=== PATIENT | female | born 1990 | race Caucasian/White ===

== ENCOUNTER 2018-02-20 00:11 | Emergency (ER) | payer OTHER ==
[2018-02-20 00:40] VITALS: BP 134/77; TEMP 98.9; BMI 17.4
[2018-02-20] MEDS ORDERED: SODIUM CHLORIDE 1,000 ML IV STA (00:49)
[2018-02-20] MEDS ORDERED: CLEOCIN 600 MG in SODIUM CHLORIDE 50 ML IV STA (00:49)
[2018-02-20] MEDS ORDERED: DECADRON 4 MG/ML SDV IVP STA (00:50)
[2018-02-20] MEDS ORDERED: TORADOL IVP STA (00:50)
[2018-02-20] MEDS ORDERED: ROCEPHIN 1 GM in SODIUM CHLORIDE 50 ML IV STA (00:52)
[2018-02-20] MEDS ORDERED: CLEOCIN ONE ×2 (01:05→01:28)
[2018-02-20] MEDS ORDERED: ROCEPHIN ONE ×2 (01:05→01:11)
--- NOTE | 2018-02-20 02:07 | CT ---
EXAM: CT scan facial bones HISTORY: Left-sided dental pain COMPARISON: None. FINDINGS: Contiguous axial images obtained through the facial bones without contrast utilizing 3-mm collimation. Sagittal and coronal reconstructions were imaged and reviewed... The orbital structure s intact. Minimal mucoperiosteal thickening is seen within the left maxillary sinus Swelling and raissa ma are seen adjacent to the left side of the mandible. This extends into the neck. There is 10 mm ret ro mandibular lymph node. Small submental lymph nodes are noted bilaterally.. There is no evidence o f a periapical abscess. IMPRESSION: Left-sided edema and swelling which extends from level of the mandible into the neck and with adjacen t prominent lymph nodes. No evidence of dental abscess.
--- NOTE | 2018-02-20 02:14 | CT ---
EXAM: CT scan neck without contrast HISTORY: Left-sided swelling COMPARISON: None. FINDINGS: Contiguous axial images obtained from level posterior fossa through the thoracic inlet wit hout contrast utilizing 3-mm collimation. Sagittal and coronal reconstructions were imaged and revie wed.. Evaluation is limited without contrast Right lingual tonsil is mildly prominent.. Nasopharynx , oropharynx and hypopharynx are unremarkable. There is normal subglottic trachea. Thyroid gland is normal. There is left-sided neck swelling Major salivary glands are normal Prominent subcentimete r lymph nodes are noted on the left. The visualized lung apices are clear. IMPRESSION: Nonspecific left-sided neck swelling with likely reactive lymph nodes.
--- NOTE | 2018-02-20 02:30 | ED.PDOC ---
General ED Provider: Dr. GEMINI FORTUNE-ER Chief Complaint: Tooth Problem Stated Complaint: my tooth hurts and im swelling Time Seen by Physician: 00:20 Mode of Arrival: Walk-In Information Source: Patient Exam Limitations: No limitations Primary Care Provider: DORI SALMERON Nursing and Triage Documentation Reviewed and Agree: Yes Does patient meet sepsis criteria?: No System Inflammatory Response Syndrome: Not Applicable Sepsis Protocol: For patient's 13 years and over: Temp is 96.8 and below OR 101 and greater Pulse >90 BPM Resp >20/minute Acutely Altered Mental Status Are patient's symptoms suggestive of a new infection, such as: -Pneumonia -Skin, Soft Tissue -Endocarditis -UTI -Bone, Joint Infection -Implantable Device -Acute Abdominal Infection -Wound Infection -Meningitis -Blood Stream Catheter Infection -Unknown EENT Complaint Exam - Dental/Oral Complaint/Exam Mechanism of Injury: No known trauma Onset/Duration: 2 days Symptoms Are: Still present Timing: Constant Initial Severity: Mild Current Severity: Mild Location: left jaw Character: Reports: Dull, Aching, Throbbing Aggravating: Reports: Heat, Cold, Chewing Alleviating: Reports: None Associated Signs and Symptoms: Reports: Swelling, Discharge. Denies: Fever, Foul odor, Foul taste in mouth Tooth Findings: Present: Percussion tenderness, Gross decay, Gross caries Cervical Lymphadenopathy Present: Yes Facial Swelling Present: Yes Bleeding Present: No Septal Hematoma: No Foreign Body Present: No Dysphagia Present: No Drooling Present: No Asymmetrical Tonsillar Swelling Present: No Uvula Midline: No Rosa-tonsillar Fluctuence: No Trismus Present: No Palatal Petechiae Present: No Scarlatinaform Rash Present: No Differential Diagnoses: Dental Abcess, Dental Caries Review of Systems - Review Of Systems Constitutional: Reports: No symptoms Eyes: Reports: No symptoms Ears, Nose, Mouth, Throat: Reports: Mouth pain, Mouth swelling Respiratory: Reports: No symptoms Cardiac: Reports: No symptoms GI: Reports: No symptoms : Reports: No symptoms Musculoskeletal: Reports: No symptoms Skin: Reports: No symptoms Neurological: Reports: No symptoms Endocrine: Reports: No symptoms Hematologic/Lymphatic: Reports: No symptoms All Other Systems: Reviewed and Negative Past Medical History - Past Medical History Previously Healthy: No Endocrine: Reports: Unknown Cardiovascular: Reports: Unknown Respiratory: Reports: Unknown Hematological: Reports: Unknown Gastrointestinal: Reports: Unknown Genitourinary: Reports: Unknown Neuro/Psych: Reports: Unknown Musculoskeletal: Reports: Unknown Cancer: Reports: Unknown Last Menstrual Period: 2-3 WEEKS AGO - Surgical History General Surgical History: Reports: Unknown - Family History Family History: Reports: Unknown - Social History Smoking Status: Current every day smoker, Light tobacco smoker Hx Substance Use: No Alcohol Screening: None - Immunizations Tetanus Shot up to Date: Yes Physical Exam - Physical Exam Appearance: Well-appearing, No pain distress, Well-nourished Pain Distress: Mild Eyes: MARIO ENT: Ears normal, Nose normal, Oropharynx normal Neck: Supple Respiratory: Airway patent, Breath sounds clear, Breath sounds equal, Respirations nonlabored Cardiovascular: RRR GI/: Soft Musculoskeletal: Normal strength, ROM intact, No edema, No calf tenderness Skin: Warm, Dry, Normal color Neurological: Sensation intact, Motor intact, Reflexes intact, Cranial nerves intact, Alert, Oriented Psychiatric: Affect appropriate, Mood appropriate Interpretation - Radiology Interpretation Radiology Interpretation By: Radiologist Radiology Results: Positive Exam Interpreted: CT Scan Critical Care Note - Critical Care Note Total Time (mins): 0 Course - Course Hematology/Chemistry: 02/20/18 01:05 02/20/18 01:05 Orders, Labs, Meds: Lab Review 02/20/18 02/20/18 02/20/18 01:05 01:05 01:05 WBC 12.03 H RBC 3.95 L Hgb 11.2 L Hct 33.8 L MCV 85.6 MCH 28.4 MCHC 33.1 RDW Coeff of Mak 13.7 Plt Count 247 Immature Gran % (Auto) 0.6 Neut % (Auto) 70.4 Lymph % (Auto) 19.5 [place] % (Auto) 7.6 Eos % (Auto) 1.7 Baso % (Auto) 0.2 Immature Gran # (Auto) 0.1 Neut # (Auto) 8.5 H Lymph # (Auto) 2.4 [place] # (Auto) 0.9 Eos # (Auto) 0.2 Baso # (Auto) 0.0 Sodium 140 Potassium 2.7 L* Chloride 105 Carbon Dioxide 26 Anion Gap 11.7 BUN 9 Creatinine 0.65 Estimated GFR (MDRD) 110.00 BUN/Creatinine Ratio 13.84 Glucose 95 Calcium 9.0 Total Bilirubin 0.4 AST 12 L ALT < 6 L Alkaline Phosphatase 56 Total Protein 7.3 Albumin 3.5 Globulin 3.8 Albumin/Globulin Ratio 0.92 Serum , Qual Negative Orders Category Date Time Status IV [ED IV/MEDIPORT/POWERPORT] .ONCE EMERGENCY 02/20/18 00:48 Active CBC W/ AUTO DIFF Stat LAB 02/20/18 01:05 Completed COMPREHENSIVE METABOLIC PANEL Stat LAB 02/20/18 01:05 Completed SERUM Stat LAB 02/20/18 01:05 Completed 0.9 % Sodium Chloride [Saline Flush] MEDS 02/20/18 00:48 Ordered 1 syr IVF PRN PRN Ceftriaxone Sodium [Rocephin] MEDS 02/20/18 01:05 Discontinued 1 gm .ROUTE .STK-MED ONE Ceftriaxone Sodium [Rocephin] MEDS 02/20/18 01:11 Discontinued 1 gm .ROUTE .STK-MED ONE Ceftriaxone Sodium [Rocephin] 1 gm MEDS 02/20/18 00:52 Discontinued 0.9 % Sodium Chloride [Sodium Chloride] 50 ml IV ONCE Clindamycin Phosphate Inj [Cleocin] MEDS 02/20/18 01:05 Discontinued 300 mg .ROUTE .STK-MED ONE Clindamycin Phosphate Inj [Cleocin] MEDS 02/20/18 01:28 Discontinued 300 mg .ROUTE .STK-MED ONE Clindamycin Phosphate Inj [Cleocin] 600 mg MEDS 02/20/18 00:49 Discontinued 0.9 % Sodium Chloride [Sodium Chloride] 50 ml IV ONCE Dexamethasone 4 mg/ml Inj [Decadron 4 mg/ml Sdv] MEDS 02/20/18 00:50 Discontinued 8 mg IVP ONCE STA Ketorolac Tromethamine [Toradol] MEDS 02/20/18 00:50 Discontinued 30 mg IVP ONCE STA Sodium Chloride 0.9% [Sodium Chloride] 1,000 ml MEDS 02/20/18 00:49 Active IV 100 mls/hr CT MAXILLOFACIAL W/O CONTRAST Stat RADS 02/20/18 00:[address] SOFT TISSUE NECK W/O CONTR Stat RADS 02/20/18 00:51 Completed Medications Generic Name Dose Route Start Last Admin Trade Name Freq PRN Reason Stop Dose Admin Sodium Chloride 1,000 mls @ 100 mls/hr 02/20/18 00:49 02/20/18 01:16 Sodium Chloride IV 02/20/18 10:48 100 mls/hr .Q10H STA Administration Sodium Chloride 1 syr 02/20/18 00:48 02/20/18 01:19 Saline Flush IVF 1 syr PRN PRN Administration To flush IV Discontinued Medications Generic Name Dose Route Start Last Admin Trade Name Ricky PRN Reason Stop Dose Admin Dexamethasone Sodium Phosphate 8 mg 02/20/18 00:50 02/20/18 01:17 Decadron 4 Mg/Ml Sdv IVP 02/20/18 00:51 8 mg ONCE STA Administration Clindamycin Phosphate 600 mg/ 54 mls @ 50 mls/hr 02/20/18 00:49 02/20/18 01: 26 Sodium Chloride IV 02/20/18 01:53 50 mls/hr ONCE STA Administration Ceftriaxone Sodium 1 gm/ 50 mls @ 75 mls/hr 02/20/18 00:52 Sodium Chloride IV 02/20/18 01:31 ONCE STA Ketorolac Tromethamine 30 mg 02/20/18 00:50 02/20/18 01:21 Toradol IVP 02/20/18 00:51 30 mg ONCE STA Administration ms rasheed explained she could not stay in the hospital --with both the low potassium and the dental abscess she needs to be hospitalized but she refused--- -i counseled her she was at risk for arrythymia and worsening infection that could possibly compromise her airway but the refuses and decided to leave AMA Vital Signs: Temp Pulse Resp BP Pulse Ox 02/20/18 00:12 98.9 F 80 20 134/77 97 Departure - Departure Time of Disposition: 02:33 Disposition: AMA Discharge Problem: Hypokalemia, Dental abscess Instructions: Dental Abscess (ED) Condition: Good Pt referred to PMD for follow-up: Yes IPMP verified?: No Additional Instructions: return prn Allergies/Adverse Reactions: Allergies No Known Drug Allergies Adverse Reaction (Verified 02/20/18 00:31) Home Medications: Ambulatory Orders Clonazepam [Klonopin] 1 mg PO TID PRN 02/17/16 Hydrocodone/Acetaminophen [Hydrocodone-Acetamin 5-325 mg] 1 tab PO TID 02/20/18 Mirtazapine [Remeron] 7.5 mg PO BEDTIME 02/20/18 Propranolol HCl 60 mg PO TID 02/20/18 Disposition Discussed With: Patient, Family
[2018-02-20] MEDS ORDERED: K-DUR PO STA (02:35)
[2018-02-20] MEDS ORDERED: POTASSIUM CHL 10% ORAL SOL PO STA (02:39)
[2018-02-20] MEDS ORDERED: POTASSIUM CHL 10% ORAL SOL ONE (02:56)
== END 2018-02-20 04:18 | disposition left against medical advice (07) ==
LOC: ED 00:11
DX: K04.7 Periapical abscess without sinus (principal); E87.6 Hypokalemia; K02.7 Dental root caries; F17.210 Nicotine dependence, cigarettes, uncomplicated; Z79.899 Other long term (current) drug therapy
CPT/HCPCS: 36415; 80053; 84703; 85025; 96361; 96365; 96367; 96375; 99282; 99284

== ENCOUNTER 2018-02-20 13:01 | Emergency (ER) | payer OTHER ==
[2018-02-20 13:20] VITALS: BP 113/70; TEMP 98.8; BMI 17.5
--- NOTE | 2018-02-20 14:08 | ED.PDOC ---
General ED Provider: Dr. MELODIE VALDEZ Chief Complaint: Abnormal Labs Stated Complaint: returns for low potassium Time Seen by Physician: 13:00 (was seen last night in the ED SERUM K WAS 2.7 SHE LEFT AMA) Mode of Arrival: Walk-In Information Source: Patient Exam Limitations: No limitations Primary Care Provider: DORI SALMERON Nursing and Triage Documentation Reviewed and Agree: Yes Does patient meet sepsis criteria?: Yes If yes, has appropriate treatment been initiated?: No System Inflammatory Response Syndrome: Not Applicable Sepsis Protocol: For patient's 13 years and over: Temp is 96.8 and below OR 101 and greater Pulse >90 BPM Resp >20/minute Acutely Altered Mental Status Are patient's symptoms suggestive of a new infection, such as: -Pneumonia -Skin, Soft Tissue -Endocarditis -UTI -Bone, Joint Infection -Implantable Device -Acute Abdominal Infection -Wound Infection -Meningitis -Blood Stream Catheter Infection -Unknown Miscellaneous Complaint Exam - Complex/Multi-System Complaint/Exam Onset/Duration: 1 DAY Symptoms Are: Still present Episodes Lasting: Hours Initial Severity: Moderate Associated Signs and Symptoms: Denies: Decreased responsiveness, Confusion, Agitation, Dizziness, Weakness, Syncope, Headache, Short of air, Cough, Wheezing , Hemoptysis, Chest pain, Palpitations, Edema, Nausea, Vomiting, Diarrhea, Abdominal pain, Back pain, Dysuria, Hematemesis, Melena, Decreased oral intake, Fever, Diaphoresis, Immunocompromised, Anticoagulation Therapy, Recent medication changes, Indwelling medical recruiter, Prior MRSA, Prior VRE, Recent trauma, Remote trauma Recent Echo/LV Function: No Respiratory Distress: None Focal Weakness: Present: None Focal Sensory Loss: Present: None Gait: Normal Gag Reflex Present: Yes Differential Diagnosis: Metabolic Abnormality Review of Systems - Review Of Systems Constitutional: Reports: No symptoms Eyes: Reports: No symptoms Ears, Nose, Mouth, Throat: Reports: No symptoms Respiratory: Reports: No symptoms Cardiac: Reports: No symptoms GI: Reports: No symptoms : Reports: No symptoms Musculoskeletal: Reports: No symptoms Skin: Reports: No symptoms Neurological: Reports: No symptoms Endocrine: Reports: No symptoms Hematologic/Lymphatic: Reports: No symptoms All Other Systems: Reviewed and Negative Past Medical History - Past Medical History Previously Healthy: No Endocrine: Reports: Unknown Cardiovascular: Reports: Unknown Respiratory: Reports: Unknown Hematological: Reports: Unknown Gastrointestinal: Reports: Unknown Genitourinary: Reports: Unknown Neuro/Psych: Reports: Unknown Musculoskeletal: Reports: Unknown Cancer: Reports: Unknown Last Menstrual Period: 2 weeks ago - Surgical History General Surgical History: Reports: Unknown - Family History Family History: Reports: Unknown - Social History Smoking Status: Current every day smoker Hx Substance Use: No Alcohol Screening: None - Immunizations Tetanus Shot up to Date: Yes Physical Exam - Physical Exam Appearance: Well-appearing, No pain distress, Well-nourished Eyes: MARIO, EOMI, Conjunctiva clear ENT: Ears normal, Nose normal, Oropharynx normal Respiratory: Airway patent, Breath sounds clear, Breath sounds equal, Respirations nonlabored Cardiovascular: RRR, Pulses normal, No rub, No murmur GI/: Soft, Nontender, No masses, Bowel sounds normal, No Organomegaly Musculoskeletal: Normal strength, ROM intact, No edema, No calf tenderness Skin: Warm, Dry, Normal color Neurological: Sensation intact, Motor intact, Reflexes intact, Cranial nerves intact, Alert, Oriented Psychiatric: Affect appropriate, Mood appropriate Critical Care Note - Critical Care Note Total Time (mins): 0 Course - Course Hematology/Chemistry: 02/20/18 13:20 Orders, Labs, Meds: Lab Review 02/20/18 13:20 Sodium 138 Potassium 3.2 L Chloride 106 Carbon Dioxide 24 Anion Gap 11.2 BUN 13 Creatinine 0.61 Estimated GFR (MDRD) 119.00 BUN/Creatinine Ratio 21.31 Glucose 136 H Calcium 8.9 Total Bilirubin 0.4 AST 10 L ALT 6 L Alkaline Phosphatase 54 Total Protein 6.7 Albumin 3.3 L Globulin 3.4 Albumin/Globulin Ratio 0.97 Orders Category Date Time Status COMPREHENSIVE METABOLIC PANEL Stat LAB 02/20/18 13:20 Completed Vital Signs: Temp Pulse Resp BP Pulse Ox 02/20/18 13:02 98.8 F 86 16 113/70 97 Departure - Departure Time of Disposition: 14:07 (SEEN WITH NURSE SERUM K IS 3.2 ) Disposition: HOME SELF-CARE Discharge Problem: Hypokalemia Instructions: Hypokalemia (ED) Condition: Good Pt referred to PMD for follow-up: Yes IPMP verified?: No Allergies/Adverse Reactions: Allergies No Known Drug Allergies Adverse Reaction (Verified 02/20/18 00:31) Home Medications: Ambulatory Orders Clonazepam [Klonopin] 1 mg PO TID PRN 02/17/16 Hydrocodone/Acetaminophen [Hydrocodone-Acetamin 5-325 mg] 1 tab PO TID 02/20/18 Mirtazapine [Remeron] 7.5 mg PO BEDTIME 02/20/18 Propranolol HCl 60 mg PO TID 02/20/18
== END 2018-02-20 14:23 | disposition home or self-care (01) ==
LOC: ED 13:01
DX: E87.6 Hypokalemia (principal); Z79.899 Other long term (current) drug therapy; F17.210 Nicotine dependence, cigarettes, uncomplicated
CPT/HCPCS: 36415; 80053; 99282